=== PATIENT | female | born 1935 | race Caucasian/White ===

== ENCOUNTER 2021-06-09 09:49 | Emergency (ER) | payer BC ==
[~2021-06-09] VITALS: Ht 162.6 cm; Wt 54.4 kg
[2021-06-09] MEDS ORDERED: COZAAR 25 MG TA25 M1 PO (10:05)
[2021-06-09] MEDS ORDERED: DILTIAZEM 24HR180 M1 PO (10:05)
[2021-06-09] MEDS ORDERED: SIMVASTATIN80 MG PO (10:05)
[2021-06-09] MEDS ORDERED: SIKLOS100 MG PO (10:07)
[2021-06-09 10:26] LABS: ABSOLUTE LYMPHOCYTES 0.6 thou/uL (0.8-5.3); ABSOLUTE MONOCYTES 0.3 thou/uL (0.0-1.2); ABSOLUTE NEUTROPHILS 2.8 thou/uL (1.6-8.1); BASOPHILS 0.4 %; EOSINOPHILS 0.4 %; MCH 34.7 pg (26.0-34.0); MCHC 33.2 g/dL (28.0-37.0); MCV 104.6 fL (80.0-100.0); MONOCYTES 7.6 %; MPV 8.3 fl. (7.2-11.1); NUCLEATED RBCS 0 /100WBC; PLATELET COUNT* 166 thou/uL (150-400); POLYS 75.6 %; RBC 3.73 mil/uL (4.20-5.00); RDW-CV 14.1 % (10.5-14.5); WBC 3.7 thou/uL (4.0-11.0)
[2021-06-09 10:32] LABS: CALCIUM 8.6 mg/dL (8.5-10.1); CREATININE 0.7 mg/dL (0.6-1.3); POTASSIUM 4.1 mmol/L (3.5-5.1)
[2021-06-09 10:34] LABS: PROTIME 10.2 Seconds (9.20-11.50)
[2021-06-09 10:37] LABS: ALBUMIN 3.3 g/dL (3.4-5.0); TOTAL BILIRUBIN 0.3 mg/dL (<0.1-1.0); TOTAL PROTEIN 6.7 g/dL (6.4-8.2)
[2021-06-09 11:04] VITALS: BP 144/92
== END 2021-06-09 11:04 | disposition home or self-care (01) ==
LOC: M.ERS 09:49
PROVIDERS: Family Medicine
DX: R04.0 Epistaxis (principal); Z79.899 Other long term (current) drug therapy